=== PATIENT | female | born 1995 | race Caucasian/White ===

== ENCOUNTER 2018-07-08 21:00 | Emergency (ER) | payer BC, OTHER ==
[2018-07-08] MEDS ORDERED: Ondansetron ODT TAB* 4 MG PO ONE (21:33)
--- NOTE | 2018-07-08 21:42 | UC ---
Abdominal Pain Female HPI - HPI Summary HPI Summary: 3 days of progressively worsening periumbilical abdominal pain that is now mostly in the right lower quadrant. She has nausea and vomited while here in the . No diarrhea. No fever. Still has an appendix. Appetite has been decreased all day but she reports she has been trying to hydrate with water. While waiting to be seen patient had a syncopal episode. No head injury. Recovered quickly and vital signs were stable. - History of Current Complaint Chief Complaint: UCAbdominalPain Stated Complaint: ABD PAIN,NAUSEA Time Seen by Provider: 07/08/18 21:10 Hx Obtained From: Patient, Family/Crisis Therapist - DAD Hx Last Menstrual Period: 06/28/2018 Onset/Duration: Gradual Onset, Lasting Days, Still Present Timing: Constant Severity Initially: Moderate Severity Currently: Moderate Pain Intensity: 4 Pain Scale Used: 0-10 Numeric Location: Discrete At: RLQ Radiates: No Character: Sharp Aggravating Factor(s): Movement Alleviating Factor(s): Nothing Associated Signs and Symptoms: Positive: Decreased Appetite, Nausea. Negative: Fever, Back Pain, Constipation, Blood in Stool, Urinary Symptoms Allergies/Adverse Reactions: Allergies Allergy/AdvReac Type Severity Reaction Status Date / Time No Known Allergies Allergy Unverified 01/26/13 14:17 Home Medications: Home Medications Ulipristal Acetate [Tete] 07/08/18 [History] PMH/Surg Hx/FS Hx/Imm Hx Previously Healthy: Yes - Surgical History Surgical History: None Surgery Procedure, Year, and Place: KNEE SURGERY 2013 - Family History Known Family History: Positive: Diabetes Negative: Hypertension - Social History Alcohol Use: Weekly Substance Use Type: None Smoking Status (MU): Never Smoked Tobacco Review of Systems Constitutional: Negative Respiratory: Negative Cardiovascular: Negative Gastrointestinal: Abdominal Pain, Vomiting, Nausea Genitourinary: Negative All Other Systems Reviewed And Are Negative: Yes Physical Exam Triage Information Reviewed: Yes Appearance: No Pain Distress, Well-Nourished, Ill-Appearing - MODERATE Vital Signs: Initial Vital Signs Temp 98.6 F 07/08/18 21:09 Pulse 91 07/08/18 21:09 Resp 16 07/08/18 21:09 BP 119/69 07/08/18 21:09 Pulse Ox 100 07/08/18 21:09 Vital Signs Reviewed: Yes Eyes: Positive: Conjunctiva Clear ENT: Positive: Hearing grossly normal Neck: Positive: Supple Respiratory Exam: Normal Cardiovascular Exam: Normal Abdomen Description: Positive: Soft, Other: - RLQ TTP. EQUIVOCAL REBOUND. NO RIGIDITY. PAIN WITH PERCUSSION. POS OBTURATOR AND PSOAS. Negative: CVA Tenderness (R), CVA Tenderness (L), Distended, Guarding Bowel Sounds: Positive: Present Musculoskeletal: Positive: No Edema Neurological: Positive: Alert Psychological: Positive: Normal Response To Family, Age Appropriate Behavior Skin: Negative: rashes Abd Pain Female Course/Dx - Course Course Of Treatment: PT WITH 3 DAYS OF WORSENING NAUSEA AND RLQ ABDOMINAL PAIN. SYNCOPAL EVENT WHILE IN UC (LIKELY VASOVAGAL). PT TO GO [place] [facility] [place]. R/O APPY.PT OFFERED TRANSPORT TO THE ED BY AMBULANCE BUT DECLINES. ADVISED THAT BY NOT TRAVELING IN A MONITORED SETTING SHE COULD BE RISKING WORSENING OF HER CONDITION THAT COULD POSE A THREAT TO HER LIFE, HEALTH AND MEDICAL SAFETY. SHE VERBALIZES UNDERSTANDING AND CONTINUES TO DECLINE AMBULANCE TRANSFER. - Differential Dx/Diagnosis Provider Diagnoses: 1. RLQ ABDOMINAL PAIN. 2. VASOVAGAL SYNCOPE Discharge - Sign-Out/Discharge Documenting (check all that apply): Patient Departure All imaging exams completed and their final reports reviewed: No Studies - Discharge Plan Condition: Stable Disposition: TRANS HIGHER L OF CARE FAC Patient Education Materials: Syncope (ED) Referrals: Shadia Goldsmith MD [Primary Care Provider] - If Needed Additional Instructions: GO DIRECTLY TO THE [facility] FROM HERE FOR FURTHER EVALUATION. YOU HAVE DECLINED TRANSFER TO THE ED BY AMBULANCE. BE ADVISED THAT BY NOT TRAVELING IN A MONITORED SETTING YOU COULD BE RISKING WORSENING OF YOUR CONDITION THAT COULD POSE A THREAT TO YOUR LIFE, HEALTH AND MEDICAL SAFETY. VASOVAGAL SYNCOPE What is syncope? Syncope is the medical term for fainting. After fainting, a person quickly comes to and is OK again. Syncope is very common. About 1 out of every 3 people has it at some point in life. In many cases, syncope is nothing to worry about. What causes syncope? Syncope happens when the brain temporarily doesnt get enough blood. One of the most common reasons this happens is called vasovagal syncope. If you have vasovagal syncope, your body has a reaction in which your heart beats too slowly or your blood vessels expand (or both). This can happen for lots of different kinds of reasons. People can have vasovagal syncope if they: -Have stress from fear or pain (for example, because they are injured or have blood taken for tests) -Stand for too long or are over-tired or overheated -Have an unusual reaction to urinating, coughing, or other body functions Sometimes vasovagal syncope happens with no clear cause. People can also have syncope that is not vasovagal. This can happen due to the following problems: -The heart beats too quickly or too slowly because of problems with the hearts electrical system or because of side effects from some medicines. -Something blocks the flow of blood in the heart. This can happen in people who have conditions called aortic stenosis (a valve disease) or hypertrophic cardiomyopathy (a heart muscle disease). -Your blood pressure drops when you stand or sit up. That can happen if you: Do not drink enough water Take certain medicines that cause your blood pressure to drop Drink alcohol Lose a lot of blood (for example, if you get hurt) Have a medical condition that affects your blood pressure Is syncope dangerous? In many cases it is not dangerous. But it can be dangerous if you fall and hurt yourself when you faint. It can also be dangerous if you faint while driving. To be safe, check with your doctor or nurse before you start driving again after you faint. Should I see a doctor or nurse? Yes. Anyone who faints should see a doctor or nurse. Most cases of syncope are not serious. But people can get hurt when they faint. Plus, in some cases syncope is caused by a serious medical condition that should be treated. Knowing what caused you to faint can help you prevent it from happening again. Tell your doctor or nurse what happened before, during, and after you fainted. If someone was with you when you fainted, that person might be able to tell you what happened. The following information is helpful: -What were you doing before you passed out? -How were you feeling before you passed out? -How long were you passed out? -How well did you recover? -Any past history of fainting? -A list of the medicines you take -Any medical conditions you might have Your doctor or nurse will ask you a few questions and do an exam. During the exam, the doctor or nurse might: -Check your blood pressure and heart rate when you are lying down, sitting, or standing -Listen to your heart to check whether something might be wrong with your heart valves or heart muscle Will I need tests? Probably not. Many people who faint need no tests - especially if they faint only once. If your doctor decides you do need tests, the tests could include one or more of the following: -Electrocardiogram (ECG or EKG) For this test, your doctor will put sticky pads on your chest, belly, arms, and legs. Long, thin wires connect the pads to a machine. The device records the electrical activity in your heart. This can show if the pattern of your heartbeats is abnormal. -Carotid sinus massage For this test, a doctor presses on a blood vessel in your neck while watching your electrocardiogram. This can show if your blood vessel is too sensitive to pressure. -Echocardiogram (also called an echo) This test uses sound waves to create an image of the heart. It allows the doctors to measure the murillo and chambers of the heart, see how the heart is pumping and check how the heart valves are working. Heart valves are flaps of tissue that open and close like swinging doors. They help keep blood moving in one direction. -Home heart monitor For home monitoring, you might wear or carry a device around at home. You will keep doing normal activities. One type of monitor records all your heart beats for 1 or 2 days. With others, you push a button to record heart beats when you feel symptoms. -Tilt table test For this test, you lie flat on a table. Your doctor then monitors your heartbeats and blood pressure while your body is tilted with your head up - Billing Disposition and Condition Condition: STABLE Disposition: Trans Higher Lvl of Care Fac
[2018-07-08 21:51] VITALS: BP 122/71
== END 2018-07-08 21:52 | disposition short-term general hospital (02) ==
LOC: UCEAST 21:00
DX: R10.31 Right lower quadrant pain (principal); R11.2 Nausea with vomiting, unspecified; R55 Syncope and collapse
CPT/HCPCS: 99212; A9270-GY; G0463

== ENCOUNTER 2018-07-08 22:05 | Emergency (ER) | payer BC ==
[2018-07-08 23:45] LABS: ABS Basophils 0.1 10^3/ul (0-0.2); ABS Eosinophils 0 10^3/ul (0-0.6); ABS Lymphocytes 2.7 10^3/ul (1.0-4.8); ABS Monocytes 1.1 10^3/ul (0-0.8); ABS Neutrophils 8.8 10^3/ul (1.5-7.7); ABS Nucleated RBC 0 10^3/ul; Eosinophil % 0.2 % (0-6); Hematocrit 38 % (35-47); Lymphocyte % 21.6 % (25-47); Mean Corpuscular HGB Conc 34 g/dl (31-36); Mean Corpuscular Hemoglobin 30 pg (27-31); Mean Corpuscular Volume 88 fL (80-97); Mean Platelet Volume 7.8 fL (7.4-10.4); Nucleated Red Blood Cells % 0; Platelet Count 293 10^3/ul (150-450); Red Blood Count 4.28 10^6/ul (4.00-5.40); Red Cell Distribution Width 13 % (10.5-15); White Blood Count 12.7 10^3/ul (3.5-10.8)
[2018-07-09 00:02] LABS: EGFR Non-African American 91.4 (>60)
[2018-07-09] MEDS ORDERED: NS 0.9% 1000 ML* 1,000 ML IV ONE (00:07)
[2018-07-09] MEDS ORDERED: Ondansetron INJ* 2 MG/ML VIAL IV ONE (00:07)
[2018-07-09] MEDS ORDERED: Iohexol 300* (CONTRAST) 10 ML SDV IV ONE (01:41)
--- NOTE | 2018-07-09 02:10 | RAD ---
EXAM: CT Abdomen and Pelvis With Intravenous Contrast EXAM DATE/TIME: 07/09/2018 1:41 AM CLINICAL HISTORY: 22 years old, female; Pain; Abdominal pain; Flank; Right lower quadrant (rlq); Additional info: Rlq pain TECHNIQUE: Axial computed tomography images of the abdomen and pelvis with intravenous contrast. All CT scans at this facility use at least one of these dose optimization techniques: automated exposure control; mA and/or kV adjustment per patient size (includes targeted exams where dose is matched to clinical indication); or iterative reconstruction. Coronal and sagittal reformatted images were created and reviewed. CONTRAST: 87 ml of OMNI 300 administered intravenously. COMPARISON: No relevant prior studies available. FINDINGS: Lower thorax: No acute findings. ABDOMEN: Liver: Normal. No mass. Gallbladder and bile ducts: Normal. No calcified stones. No ductal dilation. Pancreas: Normal. No ductal dilation. Spleen: Normal. No splenomegaly. Adrenals: Normal. No mass. Kidneys and ureters: No renal solid cortical lesions, calculi, or pelvocaliectasis. Stomach and bowel: Incompletely distended grossly normal stomach. Normal caliber small bowel. No colonic masses or segmental wall thickening. Appendix: Normal caliber appendix without wall thickening or adjacent inflammation. PELVIS: Bladder: Thin-walled bladder with no focal nodularity, perivesicular stranding, or calcifications. Reproductive: Uterus and ovaries are normal. ABDOMEN and PELVIS: Intraperitoneal space: Normal. No free air. No significant fluid collection. Bones/joints: No fractures. No suspicious bone lesions. Soft tissues: Normal. No hernia. Vasculature: Normal caliber aorta with no evidence of dissection or rupture. Patent IVC. Lymph nodes: Normal. No enlarged lymph nodes. IMPRESSION: No CT findings to correlate with patient's symptomatology. Specifically no obstructing renal or ureteral calculi. No appendicitis. To contact [facility] with a general question: Operations Center - [phone] For direct physician to physician contact: Physician Hotline - [phone] [facility] ([facility] ID #[id number])
[2018-07-09 04:11] LABS: Urine Appearance Clear; Urine Blood Negative (Negative); Urine Color Yellow; Urine Ketones 1+ (Negative); Urine Protein Negative (Negative); Urine Specific Gravity > 1.060 (1.010-1.030); Urine Urobilinogen Negative (Negative)
--- NOTE | 2018-07-09 04:23 | ED ---
Abdominal Pain/Female - HPI Summary HPI Summary: Patient complains of periumbilical pain radiating to right lower quadrant 3 days with associated nausea and a few episodes of diarrhea. Abdominal pain is intermittent, sharp, achy, worse with movement, standing, bending, worse to right lower quadrant. Patient states pain worse today. Patient states decreased appetite, though tolerating fluids well. Patient was seen at urgent care today , assessed with right lower quadrant pain. Patient also had syncopal episode at urgent care, without prior history of same. Patient denies fever, cough, sore throat, CP, SOB, vaginal symptoms, change in urine. Medical history is none. Abdominal/pelvic surgical history is none. - History of Current Complaint Chief Complaint: EDAbdPain Stated Complaint: ABD PAIN Time Seen by Provider: 07/08/18 23:55 Hx Obtained From: Patient, Family/Press Operator Assistant Hx Last Menstrual Period: 06/28/2018 Onset/Duration: Gradual Onset Timing: Intermittent Episode Lasting Severity Initially: Moderate Severity Currently: Moderate Pain Intensity: 4 Pain Scale Used: 0-10 Numeric Location: Discrete At: RLQ, Suprapubic Radiates: No Character: Sharp, Dull Aggravating Factor(s): Movement Alleviating Factor(s): Nothing Associated Signs and Symptoms: Positive: Decreased Appetite, Nausea, Diarrhea Allergies/Adverse Reactions: Allergies Allergy/AdvReac Type Severity Reaction Status Date / Time No Known Allergies Allergy Unverified 01/26/13 14:17 Home Medications: Home Medications Norgestrel-Ethinyl Estradiol [Cryselle-28 Tablet] 1 tab PO DAILY 07/09/18 [ History Confirmed 07/09/18] PMH/Surg Hx/FS Hx/Imm Hx Endocrine/Hematology History: Denies: Hx Anticoagulant Therapy Cardiovascular History: Denies: Hx Cardiac Arrest, Hx Hypertension History: Denies: Hx Dialysis Neurological History: Denies: Hx CVA - Surgical History Surgery Procedure, Year, and Place: KNEE SURGERY 2013 Infectious Disease History: No Infectious Disease History: Denies: Traveled Outside the [place] in Last 30 Days - Family History Known Family History: Positive: Diabetes Negative: Hypertension - Social History Alcohol Use: Weekly Substance Use Type: Reports: None Smoking Status (MU): Never Smoked Tobacco Review of Systems Constitutional: Negative Eyes: Negative ENT: Negative Cardiovascular: Negative Respiratory: Negative Positive: Abdominal Pain, Diarrhea, Nausea Genitourinary: Negative Musculoskeletal: Negative Skin: Negative Neurological: Negative Psychological: Normal All Other Systems Reviewed And Are Negative: Yes Physical Exam - Summary Physical Exam Summary: Abdominal exam indicates pain worse right lower quadrant, but also has mild periumbilical and left lower quadrant tenderness. Triage Information Reviewed: Yes Vital Signs On Initial Exam: Initial Vitals Temp Pulse Resp BP Pulse Ox 98.6 F 95 16 114/78 100 07/08/18 22:12 07/08/18 22:12 07/08/18 22:12 07/08/18 22:12 07/08/18 22:12 Vital Signs Reviewed: Yes Appearance: Positive: Well-Appearing Skin: Positive: Warm Head/Face: Positive: Normal Head/Face Inspection Eyes: Positive: Normal Neck: Positive: Supple Respiratory/Lung Sounds: Positive: Clear to Auscultation Cardiovascular: Positive: Normal Abdomen Description: Positive: Other: Musculoskeletal: Positive: Normal Neurological: Positive: Normal Psychiatric: Positive: Normal AVPU Assessment: Alert - [place] Coma Scale Best Eye Response: 4 - Spontaneous Best Motor Response: 6 - Obeys Commands Best Verbal Response: 5 - Oriented Coma Scale Total: 15 Diagnostics - Vital Signs Vital Signs Temp Pulse Resp BP Pulse Ox 07/09/18 03:00 85 98 07/09/18 02:40 70 113/69 95 07/09/18 02:10 60 112/66 97 07/09/18 02:00 73 97 07/09/18 01:10 111/65 07/09/18 01:00 59 96 07/09/18 00:40 71 117/73 99 07/09/18 00:10 106/65 07/09/18 00:00 77 98 07/08/18 23:58 70 98 07/08/18 23:42 71 98 07/08/18 23:41 76 126/83 98 07/08/18 22:12 98.6 F 95 16 114/78 100 - Laboratory Lab Results: Lab Results 07/08/18 07/08/18 07/08/18 Range/Units 23:34 23:34 23:34 WBC 12.7 H (3.5-10.8) 10^3/ul RBC 4.28 (4.00-5.40) 10^6/ul Hgb 13.0 (12.0-16.0) g/dl Hct 38 (35-47) % MCV 88 (80-97) fL MCH 30 (27-31) pg MCHC 34 (31-36) g/dl RDW 13 (10.5-15) % Plt Count 293 (150-450) 10^3/ul MPV 7.8 (7.4-10.4) fL Neut % (Auto) 69.0 (38-83) % Lymph % (Auto) 21.6 L (25-47) % [place] % (Auto) 8.6 H (0-7) % Eos % (Auto) 0.2 (0-6) % Baso % (Auto) 0.6 (0-2) % Absolute Neuts (auto) 8.8 H (1.5-7.7) 10^3/ul Absolute Lymphs (auto) 2.7 (1.0-4.8) 10^3/ul Absolute Monos (auto) 1.1 H (0-0.8) 10^3/ul Absolute Eos (auto) 0 (0-0.6) 10^3/ul Absolute Basos (auto) 0.1 (0-0.2) 10^3/ul Absolute Nucleated RBC 0 10^3/ul Nucleated RBC % 0 Sodium 138 (135-145) mmol/L Potassium 4.6 (3.5-5.0) mmol/L Chloride 103 (101-111) mmol/L Carbon Dioxide 28 (22-32) mmol/L Anion Gap 7 (2-11) mmol/L BUN 8 (6-24) mg/dL Creatinine 0.80 (0.51-0.95) mg/dL Est GFR ( Amer) 110.7 (>60) Est GFR (Non-Af Amer) 91.4 (>60) BUN/Creatinine Ratio 10.0 (8-20) Glucose 93 (70-100) mg/dL Lactic Acid 0.8 (0.5-2.0) mmol/L Calcium 10.0 (8.6-10.3) mg/dL Total Bilirubin 0.80 (0.2-1.0) mg/dL AST 13 (13-39) U/L ALT 6 L (7-52) U/L Alkaline Phosphatase 46 (34-104) U/L Total Protein 7.7 (6.4-8.9) g/dL Albumin 4.7 (3.2-5.2) g/dL Globulin 3.0 (2-4) g/dL Albumin/Globulin Ratio 1.6 (1-3) Lipase 13 (11.0-82.0) U/L Beta HCG, Quant < 0.60 mIU/mL Urine Color Urine Appearance Urine pH (5-9) Ur Specific [place] (1.010-1.030) Urine Protein (Negative) Urine Ketones (Negative) Urine Blood (Negative) Urine Nitrate (Negative) Urine Bilirubin (Negative) Urine Urobilinogen (Negative) Ur Leukocyte Esterase (Negative) Urine Glucose (Negative) 07/09/18 Range/Units 03:59 WBC (3.5-10.8) 10^3/ul RBC (4.00-5.40) 10^6/ul Hgb (12.0-16.0) g/dl Hct (35-47) % MCV (80-97) fL MCH (27-31) pg MCHC (31-36) g/dl RDW (10.5-15) % Plt Count (150-450) 10^3/ul MPV (7.4-10.4) fL Neut % (Auto) (38-83) % Lymph % (Auto) (25-47) % [place] % (Auto) (0-7) % Eos % (Auto) (0-6) % Baso % (Auto) (0-2) % Absolute Neuts (auto) (1.5-7.7) 10^3/ul Absolute Lymphs (auto) (1.0-4.8) 10^3/ul Absolute Monos (auto) (0-0.8) 10^3/ul Absolute Eos (auto) (0-0.6) 10^3/ul Absolute Basos (auto) (0-0.2) 10^3/ul Absolute Nucleated RBC 10^3/ul Nucleated RBC % Sodium (135-145) mmol/L Potassium (3.5-5.0) mmol/L Chloride (101-111) mmol/L Carbon Dioxide (22-32) mmol/L Anion Gap (2-11) mmol/L BUN (6-24) mg/dL Creatinine (0.51-0.95) mg/dL Est GFR ( Amer) (>60) Est GFR (Non-Af Amer) (>60) BUN/Creatinine Ratio (8-20) Glucose (70-100) mg/dL Lactic Acid (0.5-2.0) mmol/L Calcium (8.6-10.3) mg/dL Total Bilirubin (0.2-1.0) mg/dL AST (13-39) U/L ALT (7-52) U/L Alkaline Phosphatase (34-104) U/L Total Protein (6.4-8.9) g/dL Albumin (3.2-5.2) g/dL Globulin (2-4) g/dL Albumin/Globulin Ratio (1-3) Lipase (11.0-82.0) U/L Beta HCG, Quant mIU/mL Urine Color Yellow Urine Appearance Clear Urine pH 6.0 (5-9) Ur Specific [place] > 1.060 H (1.010-1.030) Urine Protein Negative (Negative) Urine Ketones 1+ A (Negative) Urine Blood Negative (Negative) Urine Nitrate Negative (Negative) Urine Bilirubin Negative (Negative) Urine Urobilinogen Negative (Negative) Ur Leukocyte Esterase Negative (Negative) Urine Glucose Negative (Negative) Result Diagrams: 07/08/18 23:34 07/08/18 23:34 Lab Statement: Any lab studies that have been ordered have been reviewed, and results considered in the medical decision making process. Abdominal Pain Fem Course/Dx - Course Course Of Treatment: Patient complains of periumbilical pain radiating to right lower quadrant 3 days with associated nausea and a few episodes of diarrhea. Abdominal pain is intermittent, sharp, achy, worse with movement, standing, bending, worse to right lower quadrant. Patient states pain worse today. Patient states decreased appetite, though tolerating fluids well. Patient was seen at urgent care today, assessed with right lower quadrant pain. Patient also had syncopal episode at urgent care, without prior history of same. Patient denies fever, cough, sore throat, CP, SOB, vaginal symptoms, change in urine. Medical history is none. Abdominal/pelvic surgical history is none. Physical exam:Abdominal exam indicates pain worse right lower quadrant, but also has mild periumbilical and lower left side tenderness. Vital signs within normal limits. WBC 12.7. Labs otherwise unremarkable. CT abdomen and pelvis unremarkable. Follow-up with GI. - Diagnoses Provider Diagnoses: Abdominal pain Discharge - Sign-Out/Discharge Documenting (check all that apply): Patient Departure - Discharge Plan Condition: Stable Disposition: HOME Prescriptions: Promethazine TAB* [Phenergan TAB*] 25 mg PO Q8H PRN 5 Days #15 tab PRN Reason: Nausea Patient Education Materials: Acute Abdominal Pain (ED) Referrals: Shadia Goldsmith MD [Primary Care Provider] - Aki Hughes DO [Doctor of Osteopathy] - Additional Instructions: If symptoms do not improve follow-up with GI Dr. Falk. Return to the ED for any new or worsening symptoms - Billing Disposition and Condition Condition: STABLE Disposition: Home
[2018-07-09 04:44] VITALS: BP 122/70
== END 2018-07-09 04:35 | disposition home or self-care (01) ==
LOC: ED 22:05
DX: R10.33 Periumbilical pain (principal); R10.31 Right lower quadrant pain; R10.32 Left lower quadrant pain; R11.0 Nausea; R19.7 Diarrhea, unspecified
CPT/HCPCS: 36415; 74177; 80053; 81003; 83605; 83690; 84702; 85025; 93005; 96374; 99283; J2405; Q9967